=== PATIENT | male | born 1935 | race African-American/Black ===

== ENCOUNTER 2019-07-21 21:33 | Inpatient (IN) | payer MEDICARE, MEDICAID ==
[~2019-07-21] VITALS: Ht 172.7 cm; Wt 62.1 kg
[2019-07-21] MEDS ORDERED: ENALAPRIL 2.5MG/2ML VIAL 2ML IV ONE (23:00)
[2019-07-22 00:55] LABS: BASOPHILS % 0.3 % (0.0-2.0); EOSINOPHILS % 0.3 % (0.0-5.0); HEMATOCRIT. 41.9 % (42.0-52.0); HEMOGLOBIN. 13.8 g/dL (14.0-18.0); LYMPHOCYTES % 7.1 % (20.0-50.0); MEAN CORPUSCULAR HEMOGLOBIN 29.8 pg (28.0-32.0); MEAN CORPUSCULAR VOLUME 90.4 fL (80.0-94.0); MEAN PLATELET VOLUME 8.8 fl (7.4-10.4); MONOCYTES % 5.4 % (2.0-8.0); NEUTROPHILS % 86.9 % (40.0-76.0); PLATELET 156 x1000/uL (130-400); RED BLOOD CELL COUNT 4.63 mill/uL (4.7-6.1); RED CELL DISTRIBUTION WIDTH 12.9 % (11.6-14.6)
[2019-07-22 01:01] LABS: CHLORIDE 105 mEq/L (98-107)
[2019-07-22] MEDS ORDERED: MORPHINE SULFATE 2 MG/ML CPJ (NOT FOR IM USE) IV PRN (07:15)
[2019-07-22] MEDS ORDERED: HYDROCODONE/ACETAMINOPHEN 10/325MG TABLET PO PRN (07:15)
[2019-07-22] MEDS ORDERED: LORAZEPAM 2MG/ML CPJ IV PRN (07:15)
[2019-07-22] MEDS ORDERED: GUAIFENESIN 200MG/10ML SUGAR FREE UDC PO PRN (07:15)
[2019-07-22] MEDS ORDERED: DIPHENHYDRAMINE 50MG/ML VIAL IV PRN (07:15)
[2019-07-22] MEDS ORDERED: ACETAMINOPHEN 325MG TABLET PO PRN (07:15)
[2019-07-22] MEDS ORDERED: CLONIDINE 0.1MG TABLET PO PRN (07:15)
[2019-07-22] MEDS ORDERED: MAGNESIUM/ALUMINUM HYDROXIDE/SIMETHICONE 30ML UDC PO PRN (07:15)
[2019-07-22] MEDS ORDERED: IPRATROPIUM/ALBUTEROL 0.5-3(2.5)MG/3ML NEB HHN PRN (07:15)
[2019-07-22] MEDS ORDERED: ENOXAPARIN 40MG/0.4ML SYR SUBCUT SCH (07:15)
[2019-07-22] MEDS ORDERED: DOCUSATE SODIUM 100MG CAPSULE PO PRN (09:00)
[2019-07-22] MEDS ORDERED: HYDRALAZINE 20MG/ML VIAL IV PRN (15:00)
[2019-07-22 15:44] VITALS: BP 118/76
[2019-07-22 16:00] VITALS: BP 149/75
[2019-07-22 16:37] LABS: CREATINE KINASE 86 IU/L (39-308)
[2019-07-22 16:38] LABS: CREATINE KINASE MB FRACTION 1.1 ng/mL (0.5-3.6)
[2019-07-22] MEDS: SODIUM CHLORIDE 0.9% INJ 3ML FLUSH IVF SCH ×2 (16:57→22:07)
[2019-07-22] MEDS: ENOXAPARIN 40MG/0.4ML SYR SUBCUT SCH (16:58)
[2019-07-22] MEDS ORDERED: FERR324T4 MT (17:24)
[2019-07-22] MEDS ORDERED: AMLO10TA80 MT (17:24)
[2019-07-22] MEDS ORDERED: TAMS-11 MT (17:24)
[2019-07-22 20:00] VITALS: BP 98/52
[2019-07-23] VITALS (8 sets, daily range): BP systolic 124–140; BP diastolic 55–76
[2019-07-23 00:19] LABS: CREATINE KINASE MB FRACTION < 1.0 ng/mL (0.5-3.6)
[2019-07-23 01:36] LABS: CREATINE KINASE 76 IU/L (39-308)
[2019-07-23] MEDS: SODIUM CHLORIDE 0.9% INJ 3ML FLUSH IVF SCH ×3 (06:14→21:46)
[2019-07-23 07:49] LABS: BASOPHILS % 0.5 % (0.0-2.0); EOSINOPHILS % 2.9 % (0.0-5.0); HEMATOCRIT. 37.5 % (42.0-52.0); HEMOGLOBIN. 12.9 g/dL (14.0-18.0); LYMPHOCYTES % 23.3 % (20.0-50.0); MEAN CORPUSCULAR HEMOGLOBIN 30.9 pg (28.0-32.0); MEAN CORPUSCULAR VOLUME 90.3 fL (80.0-94.0); MEAN PLATELET VOLUME 9.2 fl (7.4-10.4); NEUTROPHILS % 63.3 % (40.0-76.0); PLATELET 151 x1000/uL (130-400); RED BLOOD CELL COUNT 4.15 mill/uL (4.7-6.1)
[2019-07-23 08:05] LABS: CHLORIDE 107 mEq/L (98-107)
[2019-07-23 17:16] LABS: CLARITY URINE CLEAR (CLEAR); COLOR URINE YELLOW (YELLOW); KETONES URINE NEGATIVE (NEGATIVE); LEUKOCYTE ESTERASE URINE NEGATIVE (NEGATIVE); NITRITE URINE NEGATIVE (NEGATIVE); OCCULT BLOOD URINE NEGATIVE (NEGATIVE); PROTEIN URINE NEGATIVE (NEGATIVE); SPECIFIC GRAVITY URINE 1.007 (1.005-1.030); UROBILINOGEN URINE 0.2 E.U./dL (0.2-1.0)
[2019-07-23 17:29] LABS: *AMPHETAMINES SCREEN URINE NEGATIVE (NEGATIVE)
[2019-07-23 17:30] LABS: *BARBITURATES SCREEN URINE NEGATIVE (NEGATIVE); *BENZODIAZEPINES SCREEN URINE NEGATIVE (NEGATIVE); *COCAINE SCREEN URINE NEGATIVE (NEGATIVE); METHADONE URINE SCREEN NEGATIVE (NEGATIVE); OPIATES URINE SCREEN NEGATIVE (NEGATIVE)
[2019-07-23 17:32] LABS: CANNABINOID URINE SCREEN NEGATIVE (NEGATIVE); PHENCYCLIDINE URINE SCREEN NEGATIVE (NEGATIVE)
[2019-07-23] MEDS: ENOXAPARIN 40MG/0.4ML SYR SUBCUT SCH (18:36)
[2019-07-23] MEDS: ONDANSETRON HCL 4MG/2ML INJ IV PRN (21:41)
[2019-07-23] MEDS: MECLIZINE 25MG TABLET PO PRN (21:41)
[2019-07-24] VITALS (7 sets, daily range): BP systolic 115–141; BP diastolic 61–81
[2019-07-24] MEDS: SODIUM CHLORIDE 0.9% INJ 3ML FLUSH IVF SCH ×3 (05:37→22:15)
[2019-07-24] MEDS: ENOXAPARIN 40MG/0.4ML SYR SUBCUT SCH (16:49)
[2019-07-24] MEDS: MECLIZINE 25MG TABLET PO PRN (18:32)
[2019-07-24] MEDS: ONDANSETRON HCL 4MG/2ML INJ IV PRN (18:32)
[2019-07-25] VITALS (8 sets, daily range): BP systolic 107–142; BP diastolic 47–77
[2019-07-25] MEDS: SODIUM CHLORIDE 0.9% INJ 3ML FLUSH IVF SCH ×3 (07:24→21:21)
[2019-07-25] MEDS: ENOXAPARIN 40MG/0.4ML SYR SUBCUT SCH (17:30)
[2019-07-26] VITALS: BP 138/79
[2019-07-26 04:00] VITALS: BP 129/75
[2019-07-26] MEDS: SODIUM CHLORIDE 0.9% INJ 3ML FLUSH IVF SCH ×2 (06:48→14:00)
[2019-07-26 08:00] VITALS: BP_SYST 126; BP_SYST 131; BP_DIAS 69; BP_DIAS 72; BP_DIAS 73
[2019-07-26 12:00] VITALS: BP 139/77
[2019-07-26 13:49] VITALS: BP 139/77
== END 2019-07-26 15:50 | disposition home health service (06) | DRG 74 ==
LOC: ER 21:33 → EDBEDREQ 07-22 00:56 → 5WST 07-22 01:55 → EDBEDREQ 07-22 02:08 → EDBEDREQTM 07-22 02:08 → ENRESERV 07-22 13:27
PROVIDERS: ADMIT Internal Medicine; ATTEND Internal Medicine
DX: G90.8 Other disorders of autonomic nervous system (principal); I10 Essential (primary) hypertension; E78.5 Hyperlipidemia, unspecified; R26.9 Unspecified abnormalities of gait and mobility; E78.00 Pure hypercholesterolemia, unspecified; Z68.20 Body mass index [BMI] 20.0-20.9, adult
CPT/HCPCS: 36415; 70544; 70553; 71045; 80053; 80061; 80305; 80320; 81003; 82550; 82553; 83036; 83880; 84439; 84443; 84484; 85025; 85379; 93005; 93306; 93880; 93970; 97162; 97166; 97535; 99285; J1650; J2405; J3490; J8597; G0480